=== PATIENT | female | born 1945 | race Caucasian/White ===

== ENCOUNTER 2020-02-19 12:57 | Outpatient (RCR) | payer BC | END 2020-03-10 | disposition home or self-care (01) | LOC: WCC 12:57 | DX: H90.41 Sensorineural hearing loss, unilateral, right ear, with unrestricted hearing on the contralateral side (principal); I10 Essential (primary) hypertension; Z79.899 Other long term (current) drug therapy; Z88.6 Allergy status to analgesic agent ==

== ENCOUNTER 2020-02-19 14:41 | Outpatient (RCR) | payer SELFPAY | END 2020-03-10 | disposition home or self-care (01) | LOC: WCC 14:41 | DX: H90.41 Sensorineural hearing loss, unilateral, right ear, with unrestricted hearing on the contralateral side (principal); I10 Essential (primary) hypertension; Z79.899 Other long term (current) drug therapy; Z88.6 Allergy status to analgesic agent | CPT/HCPCS: G0277 ×13 ==